=== PATIENT | female | born 1985 | race Asian ===

== ENCOUNTER 2016-07-06 19:12 | Inpatient (IN) | payer OTHER ==
[~2016-07-06] VITALS: Ht 162.6 cm; Wt 88.0 kg
[2016-07-06] MEDS ORDERED: LACTATED RINGERS 1,000 ML IV SCH (20:44)
[2016-07-06] MEDS ORDERED: NALBUPHINE HYDROCHLORIDE 10 MG/ML VIAL IVP PRN (20:45)
[2016-07-06] MEDS ORDERED: PROMETHAZINE 25 MG/ML VIAL IVP PRN (20:45)
[2016-07-06] MEDS ORDERED: MISOPROSTOL 25 MCG TAB VG PRN (20:45)
[2016-07-06] MEDS ORDERED: OXYTOCIN 10 UNITS/ML VIAL IM ONE (20:45)
[2016-07-06] MEDS ORDERED: OXYTOCIN 20 UNITS/LR PREMIX 1,000 ML IV SCH (20:45)
[2016-07-06] MEDS ORDERED: OXYTOCIN 20 UNITS/LR PREMIX 1,000 ML IV ONE (21:35)
[2016-07-06 21:45] LABS: BILIRUBIN,URINE NEGATIVE (NEGATIVE); BLOOD, URINE NEGATIVE (NEGATIVE); COLOR,URINE YELLOW (YELLOW); LEUKOCYTE ESTERASE ,URINE NEGATIVE (NEGATIVE); NITRITE, URINE NEGATIVE (NEGATIVE); PROTEIN,URINE NEGATIVE (NEGATIVE); UGLUCOSE TRACE (NEGATIVE); UROBILINOGEN,URINE 0.2 EU/dL (0.2 - 1)
[2016-07-06 21:47] LABS: APPEARANCE,URINE HAZY (CLEAR)
[2016-07-06 21:50] LABS: BACTERIA,URINE FEW /HPF (None Seen); CALCIUM OXALATE CRYSTALS,UR 30-50 /HPF (None Seen); RBC,URINE 0-5 /HPF (0-5); WBC,URINE 0-3 /HPF (0-5)
[2016-07-06 21:51] LABS: URINE AMORPHOUS PHOSPHATES 1+ /HPF (None Seen)
[2016-07-06 21:59] LABS: BASOPHILS % (AUTO) 0.4 % (0.0-2.0); EOSINOPHILS # (AUTO) 0.3 K/uL (0-0.4); EOSINOPHILS % (AUTO) 2.3 % (0.0-4.0); HEMATOCRIT 39.5 % (36-48); HEMOGLOBIN 13.3 g/dL (12.0-16.0); LYMPHOCYTES # (AUTO) 2.1 K/uL (2.5-16.5); LYMPHOCYTES % (AUTO) 17.2 % (20.5-51.1); MEAN CORPUSCULAR HEMOGLOBIN 30 pg (27-31); MEAN CORPUSCULAR HGB CONC 34 g/dL (33-37); MEAN CORPUSCULAR VOLUME 90 fL (80-94); MONOCYTES % (AUTO) 7.7 % (1.7-9.3); NEUTROPHILS # (AUTO) 9.1 K/uL (1.8-7.7); NEUTROPHILS % (AUTO) 72.4 % (42.2-75.2); PLATELET COUNT (AUTO) 295 K/uL (140-450); RED BLOOD CELL COUNT(AUTO) 4.38 MIL/uL (4.20-5.40); RED CELL DISTRIBUTION WIDTH 13.9 % (11.6-13.7); WHITE BLOOD COUNT (AUTO) 12.5 K/uL (4.8-10.8)
[2016-07-06 22:14] LABS: ALBUMIN 2.6 g/dL (3.4-5.0); ANION GAP 15.9 (8-16); CARBON DIOXIDE 21.3 mmol/L (21-32); CREATININE 0.6 mg/dL (0.6-1.3); POTASSIUM 4.2 mmol/L (3.5-5.1); TOTAL BILIRUBIN 0.3 mg/dL (0.0-1.0); TOTAL PROTEIN, SERUM 6.9 g/dL (6.4-8.2)
[2016-07-06 22:30] VITALS: BP 109/66
[2016-07-06] MEDS ORDERED: FERR-193 PO (23:03)
[2016-07-06] MEDS ORDERED: PREN-546 PO (23:03)
[2016-07-06] MEDS ORDERED: MIC5 PO (23:03)
[2016-07-07] MEDS ORDERED: ROPIVACAINE 0.2%/NS PREMIX 250 ML EPI ONE (01:21)
[2016-07-07] MEDS ORDERED: OXYTOCIN 10 UNITS/ML VIAL ONE (06:56)
[2016-07-07] MEDS ORDERED: oxyCODONE/APAP 5/325 MG 1 TAB TAB PO PRN (08:45)
[2016-07-07] MEDS ORDERED: HYDROcodone/APAP 5/325 MG 1 TAB TAB PO PRN (08:45)
[2016-07-07] MEDS ORDERED: WITCH HAZEL 40 PAD PACKAGE TP PRN (08:45)
[2016-07-07] MEDS ORDERED: OXYTOCIN 10 UNITS/ML VIAL IM PRN (08:45)
[2016-07-07] MEDS ORDERED: TEMAZEPAM 15 MG CAP PO PRN (08:45)
[2016-07-07] MEDS ORDERED: METHYLERGONOVINE 0.2 MG/ML AMP IM PRN (08:45)
[2016-07-07] MEDS ORDERED: BENZOCAINE/MENTHOL 20%-0.5% 60 GM CAN TP PRN (08:45)
[2016-07-07] MEDS ORDERED: MEASLES, MUMPS, AND RUBELLA 1 VIAL SQVAC PRN (08:45)
--- NOTE | 2016-07-07 08:59 | NUR ---
PATIENT HAS BEEN SCREENED AND CATEGORIZED LOW NUTRITION RISK. PATIENT WILL BE SEEN WITHIN 7 DAYS OF ADMISSION. 07/13/[address]
[2016-07-07] MEDS: IBUPROFEN 800 MG TAB PO PRN (19:09)
[2016-07-07] MEDS ORDERED: DOCUSATE SOD/SENNA 50/8.6 MG 1 TAB PO SCH (21:00)
[2016-07-08] MEDS: IBUPROFEN 800 MG TAB PO PRN ×4 (01:26→23:05)
[2016-07-08 06:09] LABS: HEMATOCRIT 34.9 % (36-48); HEMOGLOBIN 11.4 g/dL (12.0-16.0)
[2016-07-09] MEDS: IBUPROFEN 800 MG TAB PO PRN (06:09)
== END 2016-07-09 10:40 | disposition home or self-care (01) | DRG 775 ==
LOC: MLD 19:12 → MFCC 07-07 12:00
PROVIDERS: ADMIT Obstetrics & Gynecology; ATTEND Obstetrics & Gynecology
PROC: 10E0XZZ Delivery of Products of Conception, External Approach (ICD-10-PCS; principal; 2016-07-07)
PROC: 00HU33Z Insertion of Infusion Device into Spinal Canal, Percutaneous Approach (ICD-10-PCS; 2016-07-07)
PROC: 3E0R3CZ (ICD-10-PCS; 2016-07-07)
PROC: 3E0234Z Introduction of Serum, Toxoid and Vaccine into Muscle, Percutaneous Approach (ICD-10-PCS; 2016-07-08)
DX: O24.425 Gestational diabetes mellitus in childbirth, controlled by oral hypoglycemic drugs (principal); O70.1 Second degree perineal laceration during delivery; Z3A.39 39 weeks gestation of pregnancy; Z37.0 Single live birth; Z23 Encounter for immunization
CPT/HCPCS: 36415; 51702; 59409; 80053; 81001; 85018; 85025; 86592; 86886; 86900; 86901; 90715; J2590; J2795; J7120